=== PATIENT | female | born 2005 | race Caucasian/White ===

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

== ENCOUNTER 2025-04-03 11:10 | Outpatient (CLI) | payer BC, SELFPAY | END 2025-04-03 11:11 | disposition home or self-care (01) | PROVIDERS: PCP Physician Assistant Medical; Visit Provider Obstetrics & Gynecology | DX: F64.9 Gender identity disorder, unspecified (principal); Z79.890 Hormone replacement therapy | CPT/HCPCS: 80076; 84403 ==

== ENCOUNTER 2025-07-02 10:56 | Outpatient (CLI) | payer BC, SELFPAY | END 2025-07-02 10:57 | disposition home or self-care (01) | LOC: NFLDREF 07-08 19:15 | PROVIDERS: PCP Physician Assistant Medical; Referring Provider Physician Assistant Medical; Visit Provider Obstetrics & Gynecology | DX: Z79.899 Other long term (current) drug therapy (principal) | CPT/HCPCS: 80076 ==